=== PATIENT | female | born 1975 | race Hispanic/Latino ===

== ENCOUNTER 2017-12-04 23:13 | Emergency (ER) | payer BC ==
[2017-12-04 23:39] VITALS: TEMP 98.3; O2SAT 100
--- NOTE | 2017-12-04 23:50 | ED PDOC ---
Arrival/HPI - General Historian: Patient - History of Present Illness Time/Duration: < month Symptom Onset: Gradual Symptom Course: Unchanged Quality: Pressure, Fullness, Throbbing <Demetrio Pineda - Last Filed: 12/05/17 00:05> <Josiah Shoemaker - Last Filed: 12/05/17 00:37> - General Chief Complaint: ENT Problem Time Seen by Provider: 12/04/17 23:16 - History of Present Illness Narrative History of Present Illness (Text): 12/04/17 23:48 Patient is a 42 yo F with PMH of esophagitis presents to ED due to left ear pain. Patient states that about 1 month ago she was diagnosed with otitis media and given 5 days of Amoxicillin on follow up she stated that left ear pain was not getting better and was then given another 5 days of Amoxicillin. After 10 days of antibiotics, patient stated that she wasn't feeling any better. She complained of left ear pain, pressure, tinnitus, and feeling of liquid in ear. Patient went to urgent care to be reassessed. At that point, she was told that the infection had resolved, but blood was visualized. Patient was evaluated by ENT who prescribed her prednisone. Patient followed up with ENT last Tuesday and stated that the left ear appeared normal. Patient presents to the ED today because her symptoms have not improved, which include left ear pain, tinnitus, muffled hearing, and feeling of liquid in ear. Patient denies sinus pressure/ pain, congestion, sore throat, post nasal drip, cough, CP, SOB, n/v/d, abdominal pain, fever, chills, VARELA, or dizziness. (Demetrio Pineda) Past Medical History - Provider Review Nursing Documentation Reviewed: Yes - Cardiac Hx Cardiac Disorders: No - Pulmonary Hx Respiratory Disorders: No - Neurological Hx Neurological Disorder: No - HEENT Hx HEENT Disorder: No - Renal Hx Renal Disorder: No - Endocrine/Metabolic Hx Endocrine Disorders: No - Hematological/Oncological Hx Blood Disorders: No - Integumentary Hx Dermatological Disorder: No - Musculoskeletal/Rheumatological Hx Musculoskeletal Disorders: No - Gastrointestinal Hx Gastrointestinal Disorders: Yes Other/Comment: Esophageal Erosion - Genitourinary/Gynecological Hx Genitourinary Disorders: No - Psychiatric Hx Psychophysiologic Disorder: No Hx Substance Use: No - Anesthesia Hx Anesthesia: No <Demetrio Pineda - Last Filed: 12/05/17 00:05> Family/Social History - Physician Review Nursing Documentation Reviewed: Yes Family/Social History: No Known Family HX Smoking Status: Never Smoked Hx Alcohol Use: Yes Frequency of alcohol use: Socially Hx Substance Use: No <Demetrio Pineda - Last Filed: 12/05/17 00:05> Allergies/Home Meds <Demetrio Pineda - Last Filed: 12/05/17 00:05> <Josiah Shoemaker - Last Filed: 12/05/17 00:37> Allergies/Adverse Reactions: Allergies minocycline [From Minocin] Allergy (Verified 12/04/17 23:34) SWELLING Home Medications: Home Meds Medication Instructions Recorded Confirmed Pantoprazole [Protonix] 40 mg PO DAILY PRN 12/04/17 12/04/17 Review of Systems - Physician Review All systems were reviewed & negative as marked: Yes (12 point ROS reviewed and is negative other than what is stated in HPI.) <Demetrio Pineda - Last Filed: 12/05/17 00:05> Physical Exam Vital Signs Reviewed: Yes Temperature: Afebrile Blood Pressure: Normal Pulse: Regular Respiratory Rate: Normal Appearance: Positive for: Non-Toxic Pain Distress: Mild Mental Status: Positive for: Alert and Oriented X 3 - Systems Exam Head: Present: Atraumatic, Normocephalic Pupils: Present: PERRL Extroacular Muscles: Present: EOMI Conjunctiva: Present: Normal Ears: Present: Normal, NORMAL TM, Erythema (mild left canal erythema), Normal Canal. No: TM Bulging, Fluid, TM Perf Mouth: Present: Moist Mucous Membranes Neck: Present: Normal Range of Motion Respiratory/Chest: Present: Clear to Auscultation Cardiovascular: Present: Regular Rate and Rhythm Abdomen: No: Tenderness, Distention, Rebound, Guarding Upper Extremity: Present: Normal Inspection Lower Extremity: Present: Normal Inspection Neurological: Present: GCS=15, CN II-XII Intact, Speech Normal Skin: Present: Warm, Dry, Normal Color. No: Rashes Psychiatric: Present: Alert, Oriented x 3 <Demetrio Pineda - Last Filed: 12/05/17 00:05> Vital Signs Temp Pulse Resp BP Pulse Ox 12/05/17 00:06 81 18 120/74 100 12/04/17 23:35 98.3 F 90 17 124/85 100 Medical Decision Making <Demetrio Pineda - Last Filed: 12/05/17 00:05> <Josiah Shoemaker - Last Filed: 12/05/17 00:37> ED Course and Treatment: 12/05/17 00:03 42 yo F presents to ED with left ear pain, unchanged after oral antibiotics and prednisone. Plan: - Rx for Cortisporin ear drops - ENT follow up - Discharge (Demetrio Pineda) Impression: Pt seen and evaluated with medical office worker. Pt, with no significant past medical history, who presented to the Emergency department complaining of left ear pain x 1 month with associated pressre, and tinnitus. Aware and agree with HPI, clinical findings, plan, and management. Plan: -- Cortisporin -- Reassess and disposition Progress Notes: (Josiah Shoemaker) - PA / [employer] / Resident Statement / has reviewed & agrees with the documentation as recorded. / has examined the patient and agrees with the treatment plan. <Josiah Shoemaker - Last Filed: 12/05/17 00:37> Disposition/Present on Arrival - Present on Arrival Any Indicators Present on Arrival: No History of DVT/PE: No History of Uncontrolled Diabetes: No Urinary Catheter: No History of Decub. Ulcer: No History Surgical Site Infection Following: None - Disposition Have Diagnosis and Disposition been Completed?: Yes Disposition Time: 00:05 Patient Plan: Discharge <Demetrio Pineda - Last Filed: 12/05/17 00:05> <Josiah Shoemaker - Last Filed: 12/05/17 00:37> - Disposition Diagnosis: Left ear pain Disposition: HOME/ ROUTINE Condition: STABLE Discharge Instructions (ExitCare): Outer Ear Infection (DC), How to Use Ear Drops Additional Instructions: 1. Use ear drops for 7 days 2. Follow up with ENT within the week 3. Return to ED if symptoms worsen such as fever, chills, increased pain, discharge from ear ERMIAS SANTANA, thank you for letting us take care of you today. Your provider was Josiah Shoemaker MD and you were treated for ear infection. The emergency medical care you received today was directed at your acute symptoms. If you were prescribed any medication, please fill it and take as directed. It may take several days for your symptoms to resolve. Return to the Emergency Department if your symptoms worsen, do not improve, or if you have any other problems. Please contact your doctor or call one of the physicians/clinics you have been referred to that are listed on the Patient Visit Information form that is included in your discharge packet. Bring any paperwork you were given at discharge with you along with any medications you are taking to your follow up visit. Our treatment cannot replace ongoing medical care by a primary care provider outside of the emergency department. Thank you for allowing the [facility] team to be part of your care today. Prescriptions: Neomycin/Polymyxin/Hydrocortis [Cortisporin Otic Susp] 4 drop TID #1 bottle Forms: [employer] (Polish)
[2017-12-05 00:07] VITALS: BP 120/74; PULSE 81; RESP 18
== END 2017-12-05 00:06 | disposition home or self-care (01) ==
LOC: ED 23:13
DX: H92.02 Otalgia, left ear (principal)